=== PATIENT | female | born 2000 | race Two or more races ===

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

== ENCOUNTER → 2021-03-13 08:31 | Outpatient (BNVA) | payer OTHER, SELFPAY | PROVIDERS: Visit Provider Advanced Practice Midwife | DX: Z30.42 Encounter for surveillance of injectable contraceptive (principal) | CPT/HCPCS: 96372; 99211; J1050 ==

== ENCOUNTER → 2021-06-06 08:48 | Outpatient (BNVA) | payer OTHER, SELFPAY | PROVIDERS: Visit Provider Advanced Practice Midwife | DX: Z30.42 Encounter for surveillance of injectable contraceptive (principal) | CPT/HCPCS: 96372; 99211 ==

== ENCOUNTER 2021-07-03 07:50 | Outpatient (REF) | payer OTHER, SELFPAY ==
[2021-07-03 16:47] LABS: CT PCR NOT DETECTED (Not Detect.); NG PCR NOT DETECTED (Not Detect.)
== END 2021-07-03 07:51 | disposition home or self-care (01) ==
LOC: HO.LAB 07:50
PROVIDERS: Visit Provider Advanced Practice Midwife
DX: Z01.419 Encounter for gynecological examination (general) (routine) without abnormal findings (principal); Z79.899 Other long term (current) drug therapy
CPT/HCPCS: 87491; 87591

== ENCOUNTER → 2021-08-28 08:31 | Outpatient (BNVA) | payer OTHER, SELFPAY | PROVIDERS: Visit Provider Advanced Practice Midwife | DX: Z30.42 Encounter for surveillance of injectable contraceptive (principal) | CPT/HCPCS: 96372; 99211 ==

== ENCOUNTER → 2021-11-19 08:43 | Outpatient (BNVA) | payer OTHER, SELFPAY | PROVIDERS: Visit Provider Advanced Practice Midwife | DX: Z30.42 Encounter for surveillance of injectable contraceptive (principal) | CPT/HCPCS: 96372; 99211 ==

== ENCOUNTER → 2022-02-05 08:57 | Outpatient (BNVA) | payer OTHER, SELFPAY | PROVIDERS: Visit Provider Advanced Practice Midwife | DX: Z30.42 Encounter for surveillance of injectable contraceptive (principal) | CPT/HCPCS: 96372; 99211 ==

== ENCOUNTER → 2022-04-30 08:32 | Outpatient (BNVA) | payer OTHER, SELFPAY | PROVIDERS: Visit Provider Advanced Practice Midwife | DX: Z30.42 Encounter for surveillance of injectable contraceptive (principal) | CPT/HCPCS: 96372; 99211 ==

== ENCOUNTER 2022-07-09 08:33 | Outpatient (REF) | payer OTHER, SELFPAY ==
[2022-07-09 14:01] LABS: CT PCR NOT DETECTED (Not Detect.); NG PCR NOT DETECTED (Not Detect.)
== END 2022-07-09 08:34 | disposition home or self-care (01) ==
LOC: HO.LAB 08:33
PROVIDERS: Visit Provider Advanced Practice Midwife
DX: Z01.419 Encounter for gynecological examination (general) (routine) without abnormal findings (principal); Z20.2 Contact with and (suspected) exposure to infections with a predominantly sexual mode of transmission
CPT/HCPCS: 87491; 87591; 88142

== ENCOUNTER → 2022-07-23 08:42 | Outpatient (BNVA) | payer OTHER, SELFPAY | PROVIDERS: Visit Provider Advanced Practice Midwife | DX: Z30.42 Encounter for surveillance of injectable contraceptive (principal) | CPT/HCPCS: 96372; 99211 ==

== ENCOUNTER → 2022-10-22 08:35 | Outpatient (BNVA) | payer OTHER, SELFPAY | PROVIDERS: Visit Provider Advanced Practice Midwife | DX: Z30.42 Encounter for surveillance of injectable contraceptive (principal) | CPT/HCPCS: 96372; 99211 ==

== ENCOUNTER → 2023-01-14 08:40 | Outpatient (BNVA) | payer OTHER, SELFPAY | PROVIDERS: Visit Provider Advanced Practice Midwife | DX: Z30.42 Encounter for surveillance of injectable contraceptive (principal) | CPT/HCPCS: 96372; 99211 ==

== ENCOUNTER → 2023-04-09 09:11 | Outpatient (BNVA) | payer OTHER, SELFPAY | PROVIDERS: Visit Provider Advanced Practice Midwife | DX: Z30.42 Encounter for surveillance of injectable contraceptive (principal) | CPT/HCPCS: 96372; 99211 ==

== ENCOUNTER 2023-06-24 08:23 | Outpatient (AMB) | payer OTHER, SELFPAY ==
[2023-06-24 08:27] VITALS: BP 122/76; PULSE 92; O2SAT 99; BMI 28.5
--- NOTE | 2023-06-24 08:27 | A.OFFPC_ITS ---
Vital Signs 06/24/23 08:27 Height 5 ft 1 in Weight 151 lb BMI 28.5 BP 122/76 Blood Pressure Location Lt brachial Position Sitting Pulse 92 Pulse Source Pulse Oximeter Temp Source Skin Pulse Oximetry (%) 99 Oxygen Delivery Method Room Air Intake Visit Reasons: New patient- requesting physical Ostomy Care Nurse Required: No Allergies No Known Allergies Allergy (Verified 06/24/23 08:38) Medication List - Last Reconciled 06/24/23 by ANURADHA Love medroxyprogesterone (Depo-Provera) 150 mg IM [id number] Tobacco use date assessed: 06/24/23 Dental Screening Dental Screen Date: 06/24/23 Did you have a dental visit in the last 12 months?: Yes Did you have a dental problem in the last 6 months where you did not have access to dental care?: No Was dental information given to patient?: Patient has dentist HPI New patient- requesting physical HPI Details Patient is a 23-year-old female presents today for physical exam as a new patient. Previous PCP [facility] in [place]. Medical history significant for asthma, patient reports she needs refill for albuterol inhaler. Pap smear normal 06/2022 with [facility]. Dentist and eye exam up-to-date. Patient thanks she is up-to-date with her tetanus vaccine, she will provide office with her medical records from previous PCP. 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 Patient has a boyfriend and she lives with her [id number]. [facility] Medical History Asthma Surgical History No pertinent past surgical history Family History Mother No problems noted. Father No problems noted. Social History Housing: Apartment Alcohol intake: never Patient Tobacco Use Status: Never used Tobacco service: No Current occupational status: employed Cognitive needs: No Hearing needs: No Vision needs: No Female Reproductive History Menstrual Age of Menarche: 11 Questionnaire PHQ-9 Over the last 2 weeks, how often have you been bothered by any of the following problems? 1. Little interest or pleasure in doing things: not at all 2. Feeling down, depressed, or hopeless: not at all 3. Trouble falling or staying asleep, or sleeping too much: not at all 4. Feeling tired or having little energy: not at all 5. Poor appetite or overeating: not at all 6. Feeling bad about yourself - or that you are a failure or have let yourself or your family down: not at all 7. Trouble concentrating on things, such as reading the newspaper or watching television: not at all 8. Moving or speaking so slowly that other people could have noticed. Or the opposite - being so fidgety or restless that you have been moving around a lot more than usual: not at all 9. Thoughts that you would be better off or of hurting yourself in some way: not at all Total score: 0 Depression Screening Interpretation: Negative 95068 - PHQ-9 Billing: Yes Source: Developed by Drs. Maxime Hankins, Leta Ruiz, Trey James and colleagues, with an educational tera from [employer]. Thrive Questionnaire Date Thrive assessed: 06/24/23 I am a: Patient What is your living situation today?: I have a steady place to live Within the past 12 months, did the food you bought not last and you didn't have the money to get more?: Never true Within the past 12 months, did you worry whether your food would run out before you got money to buy more?: Never true Do you have trouble paying for medicines?: No Do you have trouble getting transportation to medical appointments?: No Do you have trouble paying your heating and electricity bill?: No Do you have trouble taking care of your child, family member or friend?: No Do you have trouble with day-to-day activities such as bathing, preparing meals, shopping, managing finances, etc.?: No Are you currently unemployed and looking for a job?: No Are you interested in more education?: No Currently or been in a relationship where the following occur: no concerns reported AUDIT C Alcohol Use Questionnaire (AUDIT-C) 1. How often do you have a drink containing alcohol?: Monthly or less 2. How many drinks containing alcohol do you have on a typical day when you are drinking?: 1 or 2 3. How often do you have six or more drinks on one occasion?: Never Total Score: 1 Score Reviewed/Action Taken: No MALLORIE-7 AMB Questionnaire MALLORIE-7 Date MALLORIE - 7 assessed: 06/24/23 Feeling nervous, anxious, or on edge: 0 = Not at all Not being able to stop or control worryin = Not at all Worrying too much about different things: 0 = Not at all Trouble relaxin = Not at all Being so restless that it is hard to sit still: 0 = Not at all Becoming easily annoyed or irritable: 0 = Not at all Feeling afraid as if something awful might happen: 0 = Not at all Total MALLORIE-7 score (0-4 normal; 5-9 mild; 10-14 moderate; 15-21 severe): 0 Source: Developed by Drs. Maxime Hankins, Leta Ruiz, Trey James and colleagues, with an educational tera from [employer]. MALLORIE-7 Assessment Billing MALLORIE-7 Assessment Tool: MALLORIE-7 Assessment 00656 Review of Systems Const Denies body aches, Denies chills, Denies fever(s) and Denies headache(s) Eyes Denies change in vision ENT Denies dizziness, Denies otalgia, Denies headache(s), Denies nasal discharge, Denies sinus pain and Denies sore throat Card Denies chest pain, Denies edema, Denies lightheadedness and Denies dyspnea Resp Denies cough, Denies dyspnea and Denies wheezing GI Denies constipation, Denies diarrhea, Denies nausea and Denies vomiting Denies dysuria Musc Denies myalgias Skin/Breast Denies rash Neuro Denies dizziness and Denies headache(s) Aller/Immun Denies wheezing Physical exam (Primary Care) Vital Signs: Last Vital Signs Pulse 92 06/24/23 08:27 BP 122/76 06/24/23 08:27 Pulse Ox 99 06/24/23 08:27 Oxygen Delivery Method Room Air 06/24/23 08:27 BMI result Body Mass Index 28.5 Tobacco/Smoking Status: Tobacco use Status Tobacco use date assessed 06/24/23 06/24/23 08:33 Patient Tobacco Use Status Never used Tobacco 06/24/23 08:33 PHQ-9: PHQ-9 Score PHQ-9: Total score 0 06/24/23 08:33 Depression Screening Interpretation: Negative Thrive Assessment: Date of Thrive Assessment Date Thrive assessed 06/24/23 06/24/23 08:33 Currently or been in a relationship where the following occur: no concerns reported Const General: cooperative and no acute distress Orientation/consciousness: patient oriented x3 HENMT Head: Yes normocephalic and Yes atraumatic Ears: TM's normal bilaterally Face and sinus: Yes sinuses nontender Mouth: oropharynx normal and moist mucous membranes Throat: Yes posterior oropharynx normal Eyes General: appearance normal, both eyes and all related structures Pupils: Equal, round and reactive pupils present EOM: EOMs intact bilaterally Neck Neck: Yes normal visual inspection, Yes full ROM and Yes no lymphadenopathy Thyroid: Thyroid normal Resp Effort & Inspection: normal respiratory effort and able to speak in complete sentences Auscultation: clear to auscultation bilaterally, no crackles, no rales, no rhonchi and no wheezes Cardio Rate: regular rate Rhythm: regular rhythm Heart sounds: S1 normal heart sound present, S2 normal heart sound present and no murmurs GI Palpation (GI): Soft to palpation, not firm, nontender, no guarding, not rigid and no hepatosplenomegaly Auscultation: normal bowel sounds General: No CVA tenderness Back/Spine/Pelvis Back: No CVA tenderness Skin General skin exam: no rashes or lesions noted Neuro General: patient oriented x3 Cranial nerves: Yes Equal, round and reactive pupils present Gait exam (Neuro): Normal gait present Extrem General: Yes full ROM and No edema Assessment and Plan Assessment & Plan (1) Adult general medical exam: Code(s): Z00.00 - Encounter for general adult medical examination without abnormal findings Plan: Repeat in 1 year, blood work ordered (2) Asthma: Code(s): J45.909 - Unspecified asthma, uncomplicated Plan: Stable Prescription provided for albuterol inhaler p.r.n. Signs and symptoms reviewed when to notify provider or go to the emergency department Orders: Orders Vitamin B12 and Folate Today J45.909 - Unspecified asthma, uncomplicated Comprehensive Met. Panel Today J45.909 - Unspecified asthma, uncomplicated TSH reflex Free T4 Today J45.909 - Unspecified asthma, uncomplicated Vitamin D 25-OH Total Today J45.909 - Unspecified asthma, uncomplicated Complete Blood Count Auto Diff Today Z00.00 - Encounter for general adult medical examination without abnormal findings Medications: New albuterol sulfate 90 mcg/actuation (Ventolin HFA) 2 puffs inhalation Q4-6H PRN 8.5 grams 0RF shortness of breath or wheezing J45.909 - Unspecified asthma, uncomplicated Coding Level of Care Code New Pt Prev Care 18-39yr(84000 Diagnoses Adult general medical exam Z00.00 Asthma J45.909 Additional Codes MALLORIE-7 Assessment Billing - MALLORIE-7 Assessment Tool: MALLORIE-7 Assessment 91988 ([id number])
== END 2023-06-24 08:48 | disposition home or self-care (01) ==
PROVIDERS: Visit Provider Nurse Practitioner Family
DX: Z00.00 Encounter for general adult medical examination without abnormal findings (principal); J45.909 Unspecified asthma, uncomplicated
CPT/HCPCS: 99385

== ENCOUNTER 2023-07-02 07:48 | Outpatient (AMB) | payer OTHER, SELFPAY ==
--- NOTE | 2023-07-02 07:48 | A.OFFVIS_ITS ---
Intake Vital Signs 07/02/23 07:49 Height 5 ft 1 in Weight 149 lb 14.629 oz BMI 28.3 BP 116/68 Intake Visit Reasons: control consult depo/ok linda villanueva Intake Note: The patient agreed to use of a medical imaging director during this encounter. Scribed for FAIZA Espinoza by Deedee Cao medical imaging director, on 07/02/2023 at 7:55 am EST. Event Lighting Specialist Required: No Information Interpreted: non-clinical & clinical Accompanied by: Self / Same As Patient Allergies No Known Allergies Allergy (Verified 07/02/23 07:49) Is last menstrual period known: No HPI HPI Comments History of Present Illness Details She is here for medical review for continuing Depo Provera use. She is on time with her injections. Reports no VB on Depo. She denies any contraindications to control such as: migraines with aura, history of DVT or pulmonary emboli, high blood pressure, liver disease, thrombolic disorders, Lupus, +OPAL, or smoking. She has no questions or concerns. [facility] Medical History Asthma Contraceptive surveillance Surgical History No pertinent past surgical history Family History Mother No problems noted. Father No problems noted. Social History Housing: Apartment Alcohol intake: never Patient Tobacco Use Status: Never used Tobacco service: No Current occupational status: employed Cognitive needs: No Hearing needs: No Vision needs: No Female Reproductive History Menstrual Age of Menarche: 11 control method: progesterone injection Physical Exam Vital Signs: Last Vital Signs BP 116/68 07/02/23 07:49 BMI result Body Mass Index 28.3 Const General: cooperative, healthy appearing, comfortable, no acute distress, well developed, alert and awake Office Procedures Depo Questionnaire If YES to any of the following questions, please consult a provider. Date of last gynecology exam: 07/02/23 Menstrual pattern since last injection has been: Not Applicable Irregular bleeding?: No Breast lumps or other breast changes?: No Changes in weight or appetite?: No Depression or changes in mood?: No Abnormal hair growth or loss?: No Skin problems (rash, acne, discoloration)?: No Pain at the injection site?: No Headaches?: No Nervousness?: No Abdominal pain or cramping?: No Dizziness or nausea?: No Fatigue or weakness?: No Decrease in sexual drive?: No Chest pain or shortness of breath?: No Swelling in arms or legs?: No Form completed by?: Kanchan Castro RN Office Meds Depo-Provera Performing Provider: Yary Felder CNM Administered by: Kanchan Castro on 07/02/23 08:42 Dose Route Admin Location Lot Number Expiration Date NDC Stamp Maker 150 mg IM left deltoid [id number] 08/14/25 10165-738-73 [facility] Assessment & Plan Assessment & Plan (1) Depot contraception: Code(s): Z30.42 - Encounter for surveillance of injectable contraceptive Plan: Discussed: Reviewed use, side effects and warnings. She was instructed to go to ER if she develops loss of vision, severe headache that does not resolve, chest pain, difficulty breathing, abdominal pain, or pain or tenderness in extremity or new breast lumps. Call the office with any concerns. All of her questions and concerns were addressed to the best of my ability and shared decision making. She is agreeable to plan of care. (2) Contraceptive surveillance: Code(s): Z30.40 - Encounter for surveillance of contraceptives, unspecified Orders: Orders AMB Medroxyprogesterone Injection Patient Supplied Today Z30.40 - Encounter for surveillance of contraceptives, unspecified Medications: Refilled medroxyprogesterone 150 mg IM Q12W 1 mL 2RF 12 weeks Coding Level of Care Code Est Pt Level 3 (65976) Diagnoses Depot contraception Z30.42 Contraceptive surveillance Z30.40
[2023-07-02 07:49] VITALS: BP 116/68; BMI 28.3
== END 2023-07-02 08:40 | disposition home or self-care (01) ==
LOC: HO.HWS 07:48
PROVIDERS: Visit Provider Advanced Practice Midwife
DX: Z30.42 Encounter for surveillance of injectable contraceptive (principal); Z30.40 Encounter for surveillance of contraceptives, unspecified
CPT/HCPCS: 99213

== ENCOUNTER → 2023-07-02 07:48 | Outpatient (BNVA) | payer OTHER, SELFPAY | PROVIDERS: Visit Provider Advanced Practice Midwife | DX: Z30.42 Encounter for surveillance of injectable contraceptive (principal); Z30.40 Encounter for surveillance of contraceptives, unspecified | CPT/HCPCS: 96372; 99212; J1050 ==

== ENCOUNTER 2023-07-16 07:49 | Outpatient (REF) | payer OTHER, SELFPAY ==
[2023-07-16 08:06] LABS: MANUAL DIFF FLAG NO
[2023-07-16 08:36] LABS: Basophils Absolute Auto 0.1 X10*3/uL (0.0-0.2); Basophils Percent Auto 0.6 % (0-2); Eosinophils Absolute Auto 0.3 X10*3/uL (0.0-0.4); Eosinophils Percent Auto 3.6 % (0-4); Hematocrit 47.3 % (37.0-47.0); Hemoglobin 16.2 g/dl (12.0-16.0); Imm Gran Abs Auto 0.02 X10*3/uL (0.00-0.03); Imm Gran Pct Auto 0.2 % (0.0-0.4); Lymphocytes Absolute Auto 2.7 X10*3/uL (1.2-4.9); Mean Corpuscular HGB Conc 34.2 g/dl (31.0-35.0); Mean Corpuscular Hemoglobin 28.6 pg (27.0-33.0); Mean Corpuscular Volume 83.6 fL (80.0-98.0); Mean Platelet Volume 10.2 fL (9.4-12.3); Monocytes Absolute Auto 0.7 X10*3/uL (0.1-1.2); Monocytes Percent Auto 8.4 % (2-11); Neutrophils Absolute Auto 4.7 x10*3/uL (2.0-8.3); Neutrophils Percent Auto 55.2 % (45-73); Platelet Count 334 X10*3/uL (160-400); Red Blood Count 5.66 X10*6/uL (4.20-5.50); Red Cell Distribution Width 12.8 % (11.0-16.0); White Blood Count 8.6 X10*3/uL (4.8-10.8)
[2023-07-16 10:00] LABS: Alanine Aminotransferase 10 U/L (0-31); Albumin Level 4.5 g/dL (3.5-5.0); Alkaline Phosphatase 77 U/L (39-117); Anion Gap 14 (12-20); Aspartate Amino Transferase 17 U/L (5-31); Bilirubin Total 0.4 mg/dL (0.0-1.0); Blood Urea Nitrogen 12 mg/dL (9-16); Calcium 9.8 mg/dL (8.4-10.2); Carbon Dioxide 20 mmol/L (22-29); Chloride 107 mmol/L (96-108); Estimated Glomerular Filt Rate > 60; Glucose Random 90 mg/dL (60-115); Potassium 4.3 mmol/L (3.3-5.1); Sodium 137 mmol/L (135-145); Total Protein 7.6 g/dL (6.5-8.0)
[2023-07-16 10:18] LABS: TSH reflex Free T4 1.64 uIU/mL (0.32-4.0); Vitamin D 25-OH Total 17.8 ng/mL (>30)
[2023-07-16 11:41] LABS: Folate 6.4 ng/mL (> or = 4.0); Vitamin B12 563 pg/mL (200-900)
== END 2023-07-16 07:50 | disposition home or self-care (01) ==
LOC: HO.LAB 07:49
PROVIDERS: PCP Nurse Practitioner Family; Visit Provider Nurse Practitioner Family
DX: Z00.00 Encounter for general adult medical examination without abnormal findings (principal); J45.909 Unspecified asthma, uncomplicated
CPT/HCPCS: 36415; 80053; 82306; 82607; 82746; 84443; 85025

== ENCOUNTER 2023-09-23 08:52 | Outpatient (AMB) | payer OTHER, SELFPAY ==
[2023-09-23 09:06] VITALS: BMI 29.2
--- NOTE | 2023-09-23 09:06 | AM.OFFVISNUR ---
Intake Vital Signs 09/23/23 09:06 Height 5 ft 1 in Weight 70.023 kg BMI 29.2 Intake Visit Reasons: DEPO Allergies No Known Allergies Allergy (Verified 07/02/23 07:49) Nursing Note Taisha is here today for her scheduled Depo-Provera inj. She has no complaints. AG scheduled for 12/01/23. Next Depo due in 12 wks. Office Procedures Depo Questionnaire If YES to any of the following questions, please consult a provider. Date of last injection: 07/02/23 Date of last gynecology exam: 07/09/22 Menstrual pattern since last injection has been: Not Applicable Irregular bleeding?: No Breast lumps or other breast changes?: No Changes in weight or appetite?: No Depression or changes in mood?: No Abnormal hair growth or loss?: No Skin problems (rash, acne, discoloration)?: No Pain at the injection site?: No Headaches?: No Nervousness?: No Abdominal pain or cramping?: No Dizziness or nausea?: No Fatigue or weakness?: No Decrease in sexual drive?: No Chest pain or shortness of breath?: No Swelling in arms or legs?: No Form completed by?: Selena Barnhart LPN Office Meds Depo-Provera 150 mg/mL intramuscular syringe Performing Provider: Yary Felder CNM Performing Location: [facility] Administered by: Lydia Barnhart LPN on 09/23/23 09:07 Dose Route Admin Location Dispensed Lot Number Expiration Date [facility] Relocation Commissioner 150 mg IM lt. deltoid 1 mL [id number] 09/14/25 95738-721-09 [facility] Coding Level of Care Code Established Pt Est Pt Level 1 (27370) Patient Type Established History Problem Focused Exam Problem Focused Medical Decision Making Straight Forward Time Spent (min) 15 Assessment & Plan Assessment & Plan Orders: Orders AMB Medroxyprogesterone Injection Patient Supplied Today Z30.42 - Encounter for surveillance of injectable contraceptive
== END 2023-09-23 09:03 | disposition home or self-care (01) ==
PROVIDERS: Visit Provider Advanced Practice Midwife
DX: Z30.42 Encounter for surveillance of injectable contraceptive (principal)

== ENCOUNTER → 2023-09-23 08:52 | Outpatient (BNVA) | payer OTHER, SELFPAY | PROVIDERS: Visit Provider Advanced Practice Midwife | DX: Z30.42 Encounter for surveillance of injectable contraceptive (principal) | CPT/HCPCS: 96372; 99211; J1050 ==

== ENCOUNTER 2023-12-01 08:50 | Outpatient (REF) | payer OTHER, SELFPAY ==
[2023-12-01 11:54] LABS: CT PCR NOT DETECTED (Not Detect.); NG PCR NOT DETECTED (Not Detect.)
== END 2023-12-01 08:51 | disposition home or self-care (01) ==
LOC: HO.LNP 08:50
PROVIDERS: Visit Provider Advanced Practice Midwife
DX: Z01.419 Encounter for gynecological examination (general) (routine) without abnormal findings (principal); Z20.2 Contact with and (suspected) exposure to infections with a predominantly sexual mode of transmission
CPT/HCPCS: 0353U; 99395

== ENCOUNTER 2023-12-01 08:50 | Outpatient (AMB) | payer OTHER, SELFPAY ==
--- NOTE | 2023-12-01 08:54 | MHC.OFFVIS ---
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 Doing well with no concerns. She tries to eat healthy and stays active with exercise. Doing well on Depo-Provera with no concerns and denies any contraindications to continued use. Currently has never been sexually active. She denies vaginal itching and irritation. STI screening offered; she accepts. Denies family history of breast, ovarian or colon cancer. Last pap smear 2021, negative. [facility] Medical History Contraceptive surveillance Asthma Surgical History No pertinent past surgical history Family History Mother No problems noted. Father No problems noted. Social History Housing: Apartment Alcohol intake: current Alcohol intake frequency: holidays/special occasions only Patient Tobacco Use Status: Never used Tobacco service: No Current occupational status: employed Cognitive needs: No Hearing needs: No Vision needs: No Female Reproductive History Menstrual Age of Menarche: 11 control method: progesterone injection Total pregnancies: 0 Date of last pap smear: 07/09/22 (neg) Review of Systems Const All systems reviewed & are unremarkable except as noted in HPI and below Reports as per HPI Eyes Reports no additional complaints ENT Reports no additional complaints Card Reports no additional complaints Resp Reports no additional complaints GI Reports as per HPI and Reports no additional complaints Reports as per HPI Musc Reports no additional complaints Skin/Breast Reports as per HPI Neuro Reports no additional complaints Psych Reports no additional complaints Endo Reports no additional complaints Juancho/Lymph Reports no additional complaints Aller/Immun Reports no additional complaints Physical Exam Vital Signs: Last Vital Signs BP 122/76 12/01/23 08:55 BMI result Body Mass Index 30.0 Const General: cooperative, healthy appearing, no acute distress, well developed and alert Orientation/consciousness: patient oriented x3 HEENT Head: Yes normal to inspection Eyes General: appearance normal, both eyes and all related structures Neck Neck: Yes normal visual inspection Thyroid: Thyroid normal Chest Chest palpation & inspection: normal inspection of the chest and other (no puckering, dimpling, peau de orange, retraction, discharge, masses) Breast/axilla inspection: normal inspection of the breasts Breast/axilla palpation: normal palpation of the breasts Resp Effort & Inspection: normal respiratory effort GI Inspection: Yes normal to inspection Palpation (GI): Soft to palpation Rectal Exam - Female: deferred Other: Small hymenal ring, tense with exam General: Yes bladder normal to palpation External Female Exam: normal external appearance and normal appearance of the urethra Speculum Exam - Vagina: normal appearance of the vagina, normal palpation and normal vaginal discharge Speculum Exam - Cervix: normal appearance of the cervix and normal palpation Bimanual exam- vagina & uterus: normal bimanual exam, normal palpation, uterine size normal, bladder normal to palpation, normal palpation and non-tender Bimanual Exam- Adnexa, other: no masses Skin General skin exam: no rashes or lesions noted Rashes: no rashes Neuro General: patient oriented x3 Cognition (Neuro): normal cognition Extrem General: Yes normal to inspection Psych Attitude: cooperative Thought process: Normal thought process present Assessment & Plan Assessment & Plan (1) Encounter for well woman exam with routine gynecological exam: Code(s): Z01.419 - Encounter for gynecological examination (general) (routine) without abnormal findings Plan Discussed: Current recommendations for pap smears per ASCCP guidelines. Breast awareness and periodic breast exams. Maintain a healthy lifestyle including a well balanced diet and routine exercise. Use condoms for STI and prevention. control hormone use warnings: go to ER if and loss of vision, blindness, severe headache, chest pain or difficulty breathing, severe abdominal pain, or any pain or swelling in an extremity. All of her questions and concerns were addressed to the best of my ability. RTO in one year for annual pattern changer and repairer examination. This note is constructed using voice recognition software. While every effort has been made to ensure accuracy, diamond powder mixer errors may have been included. Orders: Orders CT NG by PCR Today Z20.2 - Contact with and (suspected) exposure to infections with a predominantly sexual mode of transmission Medications: Refilled medroxyprogesterone 150 mg IM Q12W 1 mL 4RF 12 weeks Coding Level of Care Code Est Pt Prev Care 18-39y(41125) Diagnoses Encounter for well woman exam with routine gynecological exam Z01.419
[2023-12-01 08:55] VITALS: BP 122/76
== END 2023-12-01 11:07 | disposition home or self-care (01) ==
LOC: HO.HWS 08:50
PROVIDERS: Visit Provider Advanced Practice Midwife
DX: Z01.419 Encounter for gynecological examination (general) (routine) without abnormal findings (principal)
CPT/HCPCS: 99395

== ENCOUNTER 2023-12-16 09:05 | Outpatient (AMB) | payer OTHER, SELFPAY ==
[2023-12-16 09:20] VITALS: BMI 30.2
--- NOTE | 2023-12-16 09:20 | AM.OFFVISNUR ---
Intake Vital Signs 12/16/23 09:20 Height 5 ft 1 in Weight 72.575 kg BMI 30.2 Intake Visit Reasons: DEPO Allergies No Known Allergies Allergy (Verified 12/01/23 08:55) Office Procedures Depo Questionnaire If YES to any of the following questions, please consult a provider. Date of last injection: 09/23/23 Date of last gynecology exam: 12/01/23 Menstrual pattern since last injection has been: Not Applicable test in office results: Negative Irregular bleeding?: No Breast lumps or other breast changes?: No Changes in weight or appetite?: No Depression or changes in mood?: No Abnormal hair growth or loss?: No Skin problems (rash, acne, discoloration)?: No Pain at the injection site?: No Headaches?: No Nervousness?: No Abdominal pain or cramping?: No Dizziness or nausea?: No Fatigue or weakness?: No Decrease in sexual drive?: No Chest pain or shortness of breath?: No Swelling in arms or legs?: No Form completed by?: Selena Barnhart LPN Office Meds Depo-Provera 150 mg/mL intramuscular syringe Performing Provider: Yary Felder CNM Performing Location: [facility] Administered by: Lydia Barnhart LPN on 12/16/23 09:21 Dose Route Admin Location Dispensed Lot Number Expiration Date [facility] Pattern Ruler 150 mg IM left deltoid 1 mL [id number] 03/14/25 [address]-5 Amne[employer] Coding Level of Care Code Established Pt Est Pt Level 1 (00296) Patient Type Established History Problem Focused Exam Problem Focused Medical Decision Making Straight Forward Time Spent (min) 15 Assessment & Plan Assessment & Plan Orders: Orders AMB Medroxyprogesterone Injection Patient Supplied Today Z30.42 - Encounter for surveillance of injectable contraceptive
== END 2023-12-16 09:14 | disposition home or self-care (01) ==
LOC: HO.HWS 09:05
PROVIDERS: Visit Provider Advanced Practice Midwife
DX: Z30.42 Encounter for surveillance of injectable contraceptive (principal)

== ENCOUNTER → 2023-12-16 09:05 | Outpatient (BNVA) | payer OTHER, SELFPAY | PROVIDERS: Visit Provider Advanced Practice Midwife | DX: Z30.42 Encounter for surveillance of injectable contraceptive (principal) | CPT/HCPCS: 96372; 99211; J1050 ==

== ENCOUNTER 2024-01-13 08:01 | Outpatient (AMB) | payer OTHER, SELFPAY ==
[2024-01-13 08:03] VITALS: BP 120/70; BMI 30.8
--- NOTE | 2024-01-13 08:03 | A.OFFPC_ITS ---
Vital Signs 01/13/24 08:03 Height 5 ft 1 in Weight 163 lb BMI 30.8 BP 120/70 Blood Pressure Location Lt brachial Position Sitting Intake Visit Reasons: Transfer Of Care From(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: No Accompanied by: Self / Same As Patient Allergies No Known Allergies Allergy (Verified 01/13/24 08:41) Medication List - Last Reconciled 01/13/24 by Lashay Yin MD albuterol sulfate 90 mcg/actuation (Ventolin HFA) 2 puffs inhalation Q4-6H PRN cholecalciferol (vitamin D3) 50 mcg PO DAILY medroxyprogesterone 150 mg IM Q12W 12 weeks Tobacco use date assessed: 01/13/24 Dental Screening Dental Screen Date: 01/13/24 Did you have a dental visit in the last 12 months?: Yes Did you have a dental problem in the last 6 months where you did not have access to dental care?: No Was dental information given to patient?: Patient has dentist HPI HPI Comments History of Present Illness Details This is a 23-year-old female with asthma, obesity, elevated hemoglobin and low vitamin-D that comes today for follow-up on her conditions. Use rescue inhaler about once a month. She is obese with a BMI of 30.8 and was advised to do diet and exercise. Has elevated hemoglobin and denies any headaches. CBC will be repeated. On vitamin-D supplements for her low vitamin-D and vitamin-D levels will be repeated also. No chest pain or shortness of breath. [facility] Medical History (Updated 01/13/24 @ 10:47 by Lashay Yin MD) Contraceptive surveillance Asthma Surgical History No pertinent past surgical history Family History Mother No problems noted. Father No problems noted. Social History (Updated 01/13/24 @ 08:42 by Lashay Yin MD) Housing: Apartment Alcohol intake: current Alcohol intake frequency: holidays/special occasions only Alcohol type: hard liquor Patient Tobacco Use Status: Never used Tobacco e-Cigarette/Vaping Use: Never Used Second Hand Smoke Exposure: No service: No Current occupational status: employed Cognitive needs: No Hearing needs: No Vision needs: Yes Female Reproductive History Menstrual Age of Menarche: 11 Questionnaire PHQ-9 Over the last 2 weeks, how often have you been bothered by any of the following problems? 1. Little interest or pleasure in doing things: not at all 2. Feeling down, depressed, or hopeless: not at all 3. Trouble falling or staying asleep, or sleeping too much: not at all 4. Feeling tired or having little energy: not at all 5. Poor appetite or overeating: not at all 6. Feeling bad about yourself - or that you are a failure or have let yourself or your family down: not at all 7. Trouble concentrating on things, such as reading the newspaper or watching television: not at all 8. Moving or speaking so slowly that other people could have noticed. Or the opposite - being so fidgety or restless that you have been moving around a lot more than usual: not at all 9. Thoughts that you would be better off or of hurting yourself in some way: not at all Total score: 0 Depression Screening Interpretation: Negative Depression Screening Done: Yes 50281 - PHQ-9 Billing: Yes Source: Developed by Drs. Maxime Hankins, Leta Ruiz, Trey James and colleagues, with an educational tera from [employer]. Thrive Questionnaire Date Thrive assessed: 01/13/24 I am a: Patient What is your living situation today?: I have a steady place to live Within the past 12 months, did the food you bought not last and you didn't have the money to get more?: Never true Within the past 12 months, did you worry whether your food would run out before you got money to buy more?: Never true Do you have trouble paying for medicines?: No Do you have trouble getting transportation to medical appointments?: No Do you have trouble paying your heating and electricity bill?: No Do you have trouble taking care of your child, family member or friend?: No Do you have trouble with day-to-day activities such as bathing, preparing meals, shopping, managing finances, etc.?: No Are you currently unemployed and looking for a job?: No Are you interested in more education?: No Please select the resources that you would like help with: None Currently or been in a relationship where the following occur: no concerns reported THRIVE Score: 0 AUDIT C Alcohol Use Questionnaire (AUDIT-C) 1. How often do you have a drink containing alcohol?: Monthly or less 2. How many drinks containing alcohol do you have on a typical day when you are drinking?: 1 or 2 3. How often do you have six or more drinks on one occasion?: Never Total Score: 1 Score Reviewed/Action Taken: No MALLORIE-7 AMB Questionnaire MALLORIE-7 Date MALLORIE - 7 assessed: 01/13/24 Feeling nervous, anxious, or on edge: 0 = Not at all Not being able to stop or control worryin = Not at all Worrying too much about different things: 0 = Not at all Trouble relaxin = Not at all Being so restless that it is hard to sit still: 0 = Not at all Becoming easily annoyed or irritable: 0 = Not at all Feeling afraid as if something awful might happen: 0 = Not at all Total MALLORIE-7 score (0-4 normal; 5-9 mild; 10-14 moderate; 15-21 severe): 0 Source: Developed by Drs. Maxime Hankins, Leta Ruiz, Trey James and colleagues, with an educational tera from [employer]. MALLORIE-7 Assessment Billing MALLORIE-7 Assessment Tool: MALLORIE-7 Assessment 57429 Review of Systems Const All systems reviewed & are unremarkable except as noted in HPI and below Eyes Reports no additional complaints, Denies change in vision and Denies other visual disturbances Card Denies chest pain at rest, Denies chest pain with activity, Denies edema, Denies irregular heart rhythm, Denies claudication, Denies dyspnea, Denies dyspnea on exertion, Denies orthopnea, Denies paroxysmal nocturnal dyspnea and Denies slow heart rate Resp Denies cough, Denies dyspnea and Denies dyspnea on exertion GI Denies abdominal pain, Denies change in bowel habits, Denies excessive flatus, Denies nausea and Denies vomiting Denies urinary incontinence, Denies urinary hesitancy and Denies urinary urgency Musc Denies abnormal gait, Denies atrophy, Denies deformity and Denies limited range of motion Skin/Breast Denies bleeding lesions, Denies changing lesions and Denies rash Neuro Denies abnormal gait, Denies behavioral changes and Denies lack of coordination Psych Denies behavioral changes Physical exam (Primary Care) Vital Signs: Last Vital Signs BP 120/70 01/13/24 08:03 BMI result Body Mass Index 30.8 Tobacco/Smoking Status: Tobacco use Status Tobacco use date assessed 01/13/24 01/13/24 08:09 Patient Tobacco Use Status Never used Tobacco 01/13/24 08:42 e-Cigarette/Vaping Use Never Used 01/13/24 08:42 PHQ-9: PHQ-9 Score PHQ-9: Total score 0 01/13/24 08:46 Depression Screening Interpretation: Negative Thrive Assessment: Date of Thrive Assessment Date Thrive assessed 01/13/24 01/13/24 08:09 Currently or been in a relationship where the following occur: no concerns reported Neck Neck: Yes normal visual inspection and Yes supple Resp Effort & Inspection: normal respiratory effort Auscultation: clear to auscultation bilaterally Cardio Jugular venous distension: no JVD Rate: regular rate Rhythm: regular rhythm Heart sounds: S1 normal heart sound present and S2 normal heart sound present Extrem General: Yes full ROM Assessment and Plan Assessment & Plan (1) Elevated hemoglobin: Code(s): D58.2 - Other hemoglobinopathies Plan: Repeat H&H.. If hemoglobin still elevated referred to Hematology-Oncology. Patient is aware of that. (2) Low vitamin D level: Code(s): R79.89 - Other specified abnormal findings of blood chemistry Plan: Continue vitamin-D supplements. (3) Asthma: Code(s): J45.909 - Unspecified asthma, uncomplicated Qualifiers: Asthma severity: mild Asthma persistence: persistent Asthma complication type: uncomplicated Qualified Code(s): J45.30 - Mild persistent a sthma, uncomplicated Plan: Use rescue inhaler as needed. (4) Obesity, Class I, BMI 30-34.9: Code(s): E66.9 - Obesity, unspecified Plan: Start diet and exercise. Orders: Orders Vitamin D 25-OH Total Today E55.9 - Vitamin D deficiency, unspecified IRON PROFILE Today D64.9 - Anemia, unspecified Complete Blood Count Auto Diff Today D58.2 - Other hemoglobinopathies Coding Level of Care Code Est Pt Level 4 (39015) Diagnoses Elevated hemoglobin D58.2 Low vitamin D level R79.89 Mild persistent asthma without complication J45.30 Asthma severity: mild Asthma persistence: persistent Asthma complication type: uncomplicated Obesity, Class I, BMI 30-34.9 E66.9 Additional Codes MALLORIE-7 Assessment Billing - MALLORIE-7 Assessment Tool: MALLORIE-7 Assessment 04688 ([id number]) Time Spent (min) 21
== END 2024-01-13 08:53 | disposition home or self-care (01) ==
PROVIDERS: Visit Provider Internal Medicine
DX: D58.2 Other hemoglobinopathies (principal); E66.9 Obesity, unspecified; Z68.30 Body mass index [BMI] 30.0-30.9, adult; R79.89 Other specified abnormal findings of blood chemistry; J45.30 Mild persistent asthma, uncomplicated
CPT/HCPCS: 99214

== ENCOUNTER 2024-03-06 08:55 | Outpatient (AMB) | payer OTHER, SELFPAY ==
--- NOTE | 2024-03-06 09:09 | AM.OFFVISNUR ---
Intake Vital Signs 03/06/24 09:10 Height 5 ft 1 in Weight 75.807 kg BMI 31.6 Intake Visit Reasons: DEPO Allergies No Known Allergies Allergy (Verified 01/13/24 08:41) Nursing Note Taisha is here today for he scheduled Depo-Provera INJ. She denies any problems. Follow up in 12 wks for next inj. Office Procedures Depo Questionnaire If YES to any of the following questions, please consult a provider. Date of last injection: 12/16/23 Date of last gynecology exam: 12/01/23 Menstrual pattern since last injection has been: Not Applicable Irregular bleeding?: Not Applicable Breast lumps or other breast changes?: No Changes in weight or appetite?: No Depression or changes in mood?: No Abnormal hair growth or loss?: No Skin problems (rash, acne, discoloration)?: No Pain at the injection site?: No Headaches?: No Nervousness?: No Abdominal pain or cramping?: No Dizziness or nausea?: No Fatigue or weakness?: No Decrease in sexual drive?: No Chest pain or shortness of breath?: No Swelling in arms or legs?: No Form completed by?: Selena Barnhart LPN Office Meds Depo-Provera 150 mg/mL intramuscular syringe Performing Provider: Yary Felder CNM [place] [facility] [facility] Administered by: Lydia Barnhart LPN on 03/06/24 09:10 Dose Route Admin Location Dispensed Lot Number Expiration Date [facility] Train Braker 150 mg IM rt. deltoid 1 mL [id number] 11/14/25 [address]-9 [facility] Coding Level of Care Code Established Pt Est Pt Level 1 (42690) Patient Type Established History Problem Focused Exam Problem Focused Medical Decision Making Straight Forward Time Spent (min) 20 Assessment & Plan Assessment & Plan Orders: Orders AMB Medroxyprogesterone Injection Patient Supplied Today Z30.40 - Encounter for surveillance of contraceptives, unspecified Medications: New Depo-Provera (medroxyprogesterone) 150 mg IM ONCE 1 mL 0RF NS Z30.40 - Encounter for surveillance of contraceptives, unspecified
[2024-03-06 09:10] VITALS: BMI 31.6
== END 2024-03-06 09:06 | disposition home or self-care (01) ==
LOC: HO.HWS 08:55
PROVIDERS: Visit Provider Advanced Practice Midwife
DX: Z30.40 Encounter for surveillance of contraceptives, unspecified (principal)

== ENCOUNTER → 2024-03-06 08:55 | Outpatient (BNVA) | payer OTHER, SELFPAY | PROVIDERS: Visit Provider Advanced Practice Midwife | DX: Z30.40 Encounter for surveillance of contraceptives, unspecified (principal) | CPT/HCPCS: 96372; 99211; J1050 ==

== ENCOUNTER 2024-06-01 09:01 | Outpatient (AMB) | payer OTHER, SELFPAY ==
[2024-06-01 09:16] VITALS: BMI 33.0
--- NOTE | 2024-06-01 09:16 | AM.OFFVISNUR ---
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 No c/o, no menses. Pt tolerated injection well. She will schedule her next injection for 12 wks out. Pt verbalizes understanding and agrees with plan. No further questions. Office Procedures Depo Questionnaire If YES to any of the following questions, please consult a provider. Date of last injection: 03/06/24 Date of last gynecology exam: 12/01/23 Menstrual pattern since last injection has been: Not Applicable Irregular bleeding?: No Breast lumps or other breast changes?: No Changes in weight or appetite?: No Depression or changes in mood?: No Abnormal hair growth or loss?: No Skin problems (rash, acne, discoloration)?: No Pain at the injection site?: No Headaches?: No Nervousness?: No Abdominal pain or cramping?: No Dizziness or nausea?: No Fatigue or weakness?: No Decrease in sexual drive?: No Chest pain or shortness of breath?: No Swelling in arms or legs?: No Form completed by?: Kanchan Castro RN Office Meds Depo-Provera 150 mg/mL intramuscular syringe Performing Provider: Yary Felder CNM Performing Location[place] [facility] [place] [facility] Administered by: Kanchan Castro on 06/01/24 09:17 Dose Route Admin Location Dispensed Lot Number Expiration Date [facility] Senior Online Marketing Manager 150 mg IM left deltoid 1 mL [id number] 01/12/26 [address]-4 [facility] Assessment & Plan Assessment & Plan Orders: Orders AMB Medroxyprogesterone Injection Patient Supplied Today Z30.42 - Encounter for surveillance of injectable contraceptive Medications: New Depo-Provera (medroxyprogesterone) 150 mg IM ONCE 1 mL 0RF NS Z30.42 - Encounter for surveillance of injectable contraceptive
== END 2024-06-01 09:15 | disposition home or self-care (01) ==
LOC: HO.HWS 09:01
PROVIDERS: Visit Provider Advanced Practice Midwife
DX: Z30.42 Encounter for surveillance of injectable contraceptive (principal)

== ENCOUNTER → 2024-06-01 09:01 | Outpatient (BNVA) | payer OTHER, SELFPAY | PROVIDERS: Visit Provider Advanced Practice Midwife | DX: Z30.42 Encounter for surveillance of injectable contraceptive (principal) | CPT/HCPCS: 96372; 99211; J1050 ==

== ENCOUNTER 2024-06-16 06:38 | Outpatient (REF) | payer OTHER, SELFPAY ==
[2024-06-16 06:49] LABS: MANUAL DIFF FLAG NO
[2024-06-16 07:21] LABS: Basophils Percent Auto 0.4 % (0-2); Eosinophils Absolute Auto 0.1 X10*3/uL (0.0-0.4); Eosinophils Percent Auto 0.8 % (0-4); Hematocrit 46.6 % (37.0-47.0); Hemoglobin 16.2 g/dl (12.0-16.0); Imm Gran Abs Auto 0.06 X10*3/uL (0.00-0.03); Imm Gran Pct Auto 0.6 % (0.0-0.4); Lymphocytes Absolute Auto 3.3 X10*3/uL (1.2-4.9); Lymphocytes Percent Auto 33.3 % (20-40); Mean Corpuscular HGB Conc 34.8 g/dl (31.0-35.0); Mean Corpuscular Hemoglobin 29.1 pg (27.0-33.0); Mean Corpuscular Volume 83.8 fL (80.0-98.0); Mean Platelet Volume 9.8 fL (9.4-12.3); Monocytes Absolute Auto 0.6 X10*3/uL (0.1-1.2); Monocytes Percent Auto 5.6 % (2-11); Neutrophils Absolute Auto 5.9 x10*3/uL (2.0-8.3); Neutrophils Percent Auto 59.3 % (45-73); Platelet Count 330 X10*3/uL (160-400); Red Blood Count 5.56 X10*6/uL (4.20-5.50); Red Cell Distribution Width 12.6 % (11.0-16.0); White Blood Count 9.9 X10*3/uL (4.8-10.8)
[2024-06-16 07:50] LABS: Iron 75 mcg/dL (30-160); Percent Iron Saturation 25 % (15-50); Total Iron Binding Capacity 302 mcg/dL (228-428); Unsaturated Iron Binding 227 ug/dL
[2024-06-16 08:07] LABS: Vitamin D 25-OH Total 22.1 ng/mL (>30)
== END 2024-06-16 06:39 | disposition home or self-care (01) ==
LOC: HO.LAB 06:38
PROVIDERS: PCP Internal Medicine; Visit Provider Internal Medicine
DX: D58.2 Other hemoglobinopathies (principal); D64.9 Anemia, unspecified; E55.9 Vitamin D deficiency, unspecified
CPT/HCPCS: 36415; 82306; 83540; 85025

== ENCOUNTER 2024-06-29 09:37 | Outpatient (AMB) | payer OTHER, SELFPAY ==
[2024-06-29 09:47] VITALS: BP 118/76; BMI 32.7
--- NOTE | 2024-06-29 09:47 | A.OFFPC_ITS ---
Vital Signs 06/29/24 09:47 Height 5 ft 1 in Weight 173 lb BMI 32.7 BP 118/76 Blood Pressure Location Lt brachial Position Sitting Intake Visit Reasons: ANNUAL Intake Note: Patient here for an annual physical exam Kaiako Kohanga Reo Required: No Accompanied by: Self / Same As Patient Allergies No Known Allergies Allergy (Verified 06/29/24 09:59) Medication List - Last Reconciled 06/29/24 by Lashay Yin MD albuterol sulfate 90 mcg/actuation (Ventolin HFA) 2 puffs inhalation Q4-6H PRN cholecalciferol (vitamin D3) 50 mcg PO DAILY medroxyprogesterone 150 mg IM Q12W 12 weeks Tobacco use date assessed: 01/13/24 Dental Screening Dental Screen Date: 01/13/24 HPI HPI Comments History of Present Illness Details This is a 24-year-old female that comes for her physical exam. Pap smear done 2021. Denies any chest pain or shortness on breath. No fever or cough. No chest pain or shortness on breath. She is obese with a BMI of 32.7 and was advised to do diet and exercise to reach BMI goal less than 30. Has elevated hemoglobin and will see Hematology-Oncology next week. [facility] Medical History Contraceptive surveillance Asthma Surgical History No pertinent past surgical history Family History Mother No problems noted. Father No problems noted. Social History Housing: Apartment Alcohol intake: current Alcohol intake frequency: holidays/special occasions only Alcohol type: hard liquor Patient Tobacco Use Status: Never used Tobacco e-Cigarette/Vaping Use: Never Used Second Hand Smoke Exposure: No service: No Current occupational status: employed Current occupational exposures/hazards: No Cognitive needs: No Hearing needs: No Vision needs: Yes Female Reproductive History Menstrual Age of Menarche: 11 Questionnaire Thrive Questionnaire Date Thrive assessed: 01/13/24 MALLORIE-7 AMB Questionnaire MALLORIE-7 Date MALLORIE - 7 assessed: 01/13/24 Source: Developed by Drs. Maxime Hankins, Leta Ruiz, Trey James and colleagues, with an educational tera from [employer]. Review of Systems Const All systems reviewed & are unremarkable except as noted in HPI and below Card Denies chest pain at rest, Denies chest pain with activity, Denies edema, Denies irregular heart rhythm, Denies claudication, Denies dyspnea, Denies dyspnea on e xertion, Denies orthopnea, Denies paroxysmal nocturnal dyspnea and Denies slow heart rate Resp Denies cough, Denies dyspnea and Denies dyspnea on exertion GI Denies abdominal pain, Denies change in bowel habits, Denies excessive flatus, Denies nausea and Denies vomiting Denies urinary incontinence, Denies urinary hesitancy and Denies urinary urgency Physical exam (Primary Care) Vital Signs: Last Vital Signs BP 118/76 06/29/24 09:47 BMI result Body Mass Index 32.7 BMI Assessment/Plan discussion: High BMI High, discussed plan: lifestyle, weight reduction, dietary and physical activity Tobacco/Smoking Status: Tobacco use Status Tobacco use date assessed 01/13/24 06/29/24 09:51 Patient Tobacco Use Status Never used Tobacco 06/29/24 09:51 e-Cigarette/Vaping Use Never Used 06/29/24 09:51 Thrive Assessment: Date of Thrive Assessment Date Thrive assessed 01/13/24 06/29/24 09:51 [facility] Head: Yes normal to inspection, Yes normocephalic and Yes atraumatic Ears: external ears normal Eyes General: appearance normal, both eyes and all related structures Eyelids: Yes eyelids normal Conjunctivae: conjunctivae normal Neck Neck: Yes normal visual inspection and Yes supple Resp Effort & Inspection: normal respiratory effort Auscultation: clear to auscultation bilaterally Cardio Jugular venous distension: no JVD Rate: regular rate Rhythm: regular rhythm Heart sounds: S1 normal heart sound present and S2 normal heart sound present GI Inspection: Yes normal to inspection Palpation (GI): Soft to palpation and nontender Auscultation: normal bowel sounds Skin General skin exam: no rashes or lesions noted Neuro General: no focal motor deficits Extrem General: Yes full ROM Psych Appearance: grossly normal Assessment and Plan Assessment & Plan (1) Adult general medical exam: Code(s): Z00.00 - Encounter for general adult medical examination without abnormal findings Plan: Repeat in a year. (2) Elevated hemoglobin: Code(s): D58.2 - Other hemoglobinopathies Plan: Follow-up with Hematology-Oncology. Coding Level of Care Code Est Pt Prev Care 18-39y(77513) Diagnoses Adult general medical exam Z00.00 Elevated hemoglobin D58.2 Time Spent (min) 30
== END 2024-06-29 10:07 | disposition home or self-care (01) ==
PROVIDERS: Visit Provider Internal Medicine
DX: Z00.00 Encounter for general adult medical examination without abnormal findings (principal); D58.2 Other hemoglobinopathies
CPT/HCPCS: 99395

== ENCOUNTER → 2024-07-06 09:39 | Outpatient (BNV) | payer OTHER, SELFPAY | PROVIDERS: PCP Internal Medicine; Referring Provider Internal Medicine; Visit Provider Internal Medicine | DX: D58.2 Other hemoglobinopathies (principal) | CPT/HCPCS: 99203 ==

== ENCOUNTER 2024-08-17 09:00 | Outpatient (AMB) | payer OTHER, SELFPAY ==
[2024-08-17 09:20] VITALS: BMI 32.0
--- NOTE | 2024-08-17 09:20 | AM.OFFVISNUR ---
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 No c/o. Pt tolerated injection well. She will schedule her next injection in 12 weeks. Pt verbalizes understanding and agrees with plan. No further questions. Office Procedures Depo Questionnaire If YES to any of the following questions, please consult a provider. Date of last injection: 06/01/24 Date of last gynecology exam: 12/01/23 Menstrual pattern since last injection has been: Not Applicable Irregular bleeding?: No Changes in weight or appetite?: No Depression or changes in mood?: No Abnormal hair growth or loss?: No Skin problems (rash, acne, discoloration)?: No Pain at the injection site?: No Headaches?: No Nervousness?: No Abdominal pain or cramping?: No Dizziness or nausea?: No Fatigue or weakness?: No Decrease in sexual drive?: No Chest pain or shortness of breath?: No Swelling in arms or legs?: No Form completed by?: Kanchan Castro RN Office Meds Depo-Provera 150 mg/mL intramuscular syringe Performing Provider: Yary Felder CNM Performing Location: [facility] [place] [facility] Administered by: Kanchan Castro on 08/17/24 09:25 Dose Route Admin Location Dispensed Lot Number Expiration Date [facility] Control Technician 150 mg IM right deltoid 1 mL [id number] 01/12/26 [address]-2 [facility] Assessment & Plan Assessment & Plan (1) Depot contraception: Code(s): Z30.42 - Encounter for surveillance of injectable contraceptive Category: Medical Plan Pt will schedule next injection in 12 weeks. Orders: Orders AMB Medroxyprogesterone Injection Patient Supplied Today Z30.42 - Encounter for surveillance of injectable contraceptive Medications: New Depo-Provera (medroxyprogesterone) 150 mg IM ONCE 1 mL 0RF NS Z30.42 - Encounter for surveillance of injectable contraceptive
== END 2024-08-17 09:18 | disposition home or self-care (01) ==
LOC: HO.HWS 09:00
PROVIDERS: PCP Internal Medicine; Visit Provider Advanced Practice Midwife
DX: Z30.42 Encounter for surveillance of injectable contraceptive (principal)

== ENCOUNTER → 2024-08-17 09:00 | Outpatient (BNVA) | payer OTHER, SELFPAY | PROVIDERS: PCP Internal Medicine; Visit Provider Advanced Practice Midwife | DX: Z30.42 Encounter for surveillance of injectable contraceptive (principal) | CPT/HCPCS: 96372; 99211; J1050 ==

== ENCOUNTER 2024-11-10 08:55 | Outpatient (AMB) | payer OTHER, SELFPAY ==
[2024-11-10 09:14] VITALS: BMI 33.2
--- NOTE | 2024-11-10 09:14 | AM.OFFVISNUR ---
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 No c/o, no new meds and no new medical problems. Pt tolerated injection well. She will schedule her next injection in 12 weeks. Pt verbalizes understanding and agrees with plan. No further questions. Office Procedures Depo Questionnaire If YES to any of the following questions, please consult a provider. Date of last injection: 08/17/24 Date of last gynecology exam: 12/01/23 Menstrual pattern since last injection has been: Not Applicable Irregular bleeding?: No Breast lumps or other breast changes?: No Changes in weight or appetite?: No Depression or changes in mood?: No Abnormal hair growth or loss?: No Skin problems (rash, acne, discoloration)?: No Pain at the injection site?: No Headaches?: No Nervousness?: No Abdominal pain or cramping?: No Dizziness or nausea?: No Fatigue or weakness?: No Decrease in sexual drive?: No Chest pain or shortness of breath?: No Swelling in arms or legs?: No Form completed by?: Kanchan Castro pearl technician Meds Depo-Provera 150 mg/mL intramuscular syringe Performing Provider: Yary Felder CNM Performing Location: [facility] [place] [facility] Administered by: Kanchan Castro on 11/10/24 09:18 Dose Route Admin Location Dispensed Lot Number Expiration Date [employer] Sales Account Executive 150 mg IM left deltoid 1 mL [id number] 11/14/26 35127-291-08 [facility] Assessment & Plan Assessment & Plan (1) Depot contraception: Code(s): Z30.42 - Encounter for surveillance of injectable contraceptive Category: Medical Plan: Pt will schedule her next Depo injection in 12 weeks. Orders: Orders AMB Medroxyprogesterone Injection Patient Supplied Today Z30.42 - Encounter for surveillance of injectable contraceptive Medications: New Depo-Provera (medroxyprogesterone) 150 mg IM ONCE 1 mL 0RF NS Z30.42 - Encounter for surveillance of injectable contraceptive
== END 2024-11-10 09:11 | disposition home or self-care (01) ==
LOC: HO.HWS 08:55
PROVIDERS: PCP Internal Medicine; Visit Provider Advanced Practice Midwife
DX: Z30.42 Encounter for surveillance of injectable contraceptive (principal)

== ENCOUNTER → 2024-11-10 08:55 | Outpatient (BNVA) | payer OTHER, SELFPAY | PROVIDERS: PCP Internal Medicine; Visit Provider Advanced Practice Midwife | DX: Z30.42 Encounter for surveillance of injectable contraceptive (principal) | CPT/HCPCS: 96372; 99211; J1050 ==

== ENCOUNTER 2024-12-07 08:39 | Outpatient (AMB) | payer OTHER, SELFPAY ==
--- NOTE | 2024-12-07 08:42 | A.OFFVIS_ITS ---
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 Current a user and desires to continue. She denies any contraindications to control such as: migraines with aura, history of DVT or pulmonary emboli, high blood pressure, liver disease, thrombolic disorders, Lupus, +OPAL, breast cancer, or smoking. Currently is never sexually active. She denies vaginal itching and irritation. STI screening offered; she declines. She tries to eat healthy and stays active with exercise-walking. Denies family history of breast, ovarian or colon cancer. Last pap smear 2021, negative. [facility] Medical History Contraceptive surveillance Asthma Surgical History No pertinent past surgical history Family History Mother No problems noted. Father No problems noted. Social History Household Members: Family Housing: Apartment Alcohol intake: current Alcohol intake frequency: holidays/special occasions only Alcohol type: hard liquor Patient Tobacco Use Status: Never used Tobacco e-Cigarette/Vaping Use: Never Used Second Hand Smoke Exposure: No Current occupational status: employed Current occupational exposures/hazards: No Gender identity: Female Cognitive needs: No Hearing needs: No Vision needs: Yes Female Reproductive History Menstrual Age of Menarche: 11 control method: progesterone injection (Depo 11/10/24) Total pregnancies: 0 Date of last pap smear: 07/09/22 (neg) Review of Systems Const All systems reviewed & are unremarkable except as noted in HPI and below Reports as per HPI Eyes Reports no additional complaints ENT Reports no additional complaints Card Reports no additional complaints Resp Reports no additional complaints GI Reports as per HPI and Reports no additional complaints Reports as per HPI Musc Reports no additional complaints Skin/Breast Reports as per HPI Neuro Reports no additional complaints Psych Reports no additional complaints Endo Reports no additional complaints Juancho/Lymph Reports no additional complaints Aller/Immun Reports no additional complaints Physical Exam Vital Signs: Last Vital Signs BP 114/70 12/07/24 08:43 BMI result Body Mass Index 33.1 Const General: cooperative, healthy appearing, no acute distress, well developed and alert Orientation/consciousness: patient oriented x3 HEENT Head: Yes normal to inspection Eyes General: appearance normal, both eyes and all related structures Neck Neck: Yes normal visual inspection Thyroid: Thyroid normal Chest Chest palpation & inspection: normal inspection of the chest and other (no puckering, dimpling, peau de orange, retraction, discharge, masses) Breast/axilla inspection: normal inspection of the breasts Breast/axilla palpation: normal palpation of the breasts Resp Effort & Inspection: normal respiratory effort GI Inspection: Yes normal to inspection Palpation (GI): Soft to palpation Rectal Exam - Female: deferred Other: Tense with the exam General: Yes bladder normal to palpation External Female Exam: normal external appearance and normal appearance of the urethra Speculum Exam - Vagina: normal appearance of the vagina, normal palpation and normal vaginal discharge Speculum Exam - Cervix: normal appearance of the cervix, normal palpation and Other cervical findings present (Bled with Pap) Bimanual exam- vagina & uterus: normal bimanual exam, normal palpation, uterine size normal, bladder normal to palpation, normal palpation and non-tender Bimanual Exam- Adnexa, other: no masses Skin General skin exam: no rashes or lesions noted Rashes: no rashes Neuro General: patient oriented x3 Cognition (Neuro): normal cognition Extrem General: Yes normal to inspection Psych Attitude: cooperative Thought process: Normal thought process present Assessment & Plan Assessment & Plan (1) Encounter for well woman exam with routine gynecological exam: Code(s): Z01.419 - Encounter for gynecological examination (general) (routine) without abnormal findings Category: Medical Plan Discussed: Current recommendations for pap smears per ASCCP guidelines. Pap obtained. Breast awareness and periodic breast exams. Maintain a healthy lifestyle including a well balanced diet and routine exercise. Use condoms for STI if becomes sexually active. control hormone use warnings: go to ER if and loss of vision, blindness, severe headache, chest pain or difficulty breathing, severe abdominal pain, or any pain or swelling in an extremity. Depo long-term use with reduction of bone density, methods to help prevent to include calcium and vitamin-D in her diet and weight-bearing exercise. Handout on calcium and weight-bearing exercises provided. Reviewed information on tumor generating hormonal cancers and literature currently available. Patient prefers to continue with Depo-Provera for now. Patient verbalizes understanding and agrees to the plan of care. She was given opportunity to ask questions and all questions were answered to the best of my ability. RTO in one year for annual slitter and cutter operator examination. This note is constructed using voice recognition software. While every effort has been made to ensure accuracy, paper tester errors may have been included. Medications: Refilled medroxyprogesterone 150 mg IM Q12W 12 weeks 1 mL 4RF Coding Level of Care Code Est Pt Prev Care 18-39y(15162) Diagnoses Encounter for well woman exam with routine gynecological exam Z01.419
[2024-12-07 08:43] VITALS: BP 114/70; BMI 33.1
== END 2024-12-07 09:40 | disposition home or self-care (01) ==
LOC: HO.HWS 08:39
PROVIDERS: PCP Internal Medicine; Visit Provider Advanced Practice Midwife
DX: Z01.419 Encounter for gynecological examination (general) (routine) without abnormal findings (principal)
CPT/HCPCS: 99395; 99459

== ENCOUNTER 2024-12-07 08:39 | Outpatient (REF) | payer OTHER, SELFPAY | END 2024-12-07 08:40 | disposition home or self-care (01) | LOC: HO.LNP 08:39 | PROVIDERS: PCP Internal Medicine; Visit Provider Advanced Practice Midwife | DX: Z01.419 Encounter for gynecological examination (general) (routine) without abnormal findings (principal); Z79.3 Long term (current) use of hormonal contraceptives | CPT/HCPCS: 88175; 99395; 99459 ==

== ENCOUNTER 2025-02-01 09:26 | Outpatient (AMB) | payer OTHER, SELFPAY ==
--- NOTE | 2025-02-01 10:19 | AM.OFFVISNUR ---
Intake Visit Reasons: DEPO Allergies No Known Allergies Allergy (Verified 12/07/24 08:43) Office Procedures Depo Questionnaire If YES to any of the following questions, please consult a provider. Date of last injection: 11/10/24 Pain at the injection site?: No Any other problems or concerns?: patient states no problems or concerns in 5 years of receiving this med Form completed by?: Antonia Reynoso RN Office Meds Depo-Provera 150 mg/mL intramuscular syringe Performing Provider: Yary Felder CNM Performing Location: [facility] [place] [facility] Services[facility] Administered by: Antonia Reynoso RN on 02/01/25 10:27 Dose Route Admin Location Dispensed Lot Number Expiration Date [facility] Medical/Surgery Registered Nurse 150 mg IM left arm 1.0 mL [id number] 01/13/26 79404-842-25 MYLAN Comments: Patient verified no allergies and has been receiving this medication for 5 years without ever having side effects. Patient tolerated this injection well. Assessment & Plan Assessment & Plan Orders: Orders AMB Medroxyprogesterone Injection Patient Supplied Today Z30.42 - Encounter for surveillance of injectable contraceptive Medications: New Depo-Provera (medroxyprogesterone) 150 mg IM ONCE 1 mL 0RF NS Z30.42 - Encounter for surveillance of injectable contraceptive Coding
== END 2025-02-01 10:09 | disposition home or self-care (01) ==
LOC: HO.HWS 09:26
PROVIDERS: PCP Internal Medicine; Visit Provider Advanced Practice Midwife
DX: Z30.42 Encounter for surveillance of injectable contraceptive (principal)

== ENCOUNTER → 2025-02-01 09:26 | Outpatient (BNVA) | payer OTHER, SELFPAY | PROVIDERS: PCP Internal Medicine; Visit Provider Advanced Practice Midwife | DX: Z30.42 Encounter for surveillance of injectable contraceptive (principal) | CPT/HCPCS: 96372; J1050 ==

== ENCOUNTER → 2025-04-05 09:01 | Outpatient (BNVA) | payer OTHER, SELFPAY | PROVIDERS: PCP Internal Medicine; Visit Provider Advanced Practice Midwife ==

== ENCOUNTER 2025-04-27 08:52 | Outpatient (AMB) | payer OTHER, SELFPAY ==
[2025-04-27 09:09] VITALS: BMI 34.0
--- NOTE | 2025-04-27 09:09 | AM.OFFVISNUR ---
Vital Signs 04/27/25 09:09 Height 5 ft 1 in Weight 180 lb BMI 34.0 Intake Visit Reasons: DEPO Allergies No Known Allergies Allergy (Verified 12/07/24 08:43) Medication List - Last Reconciled 04/27/25 by Danielle Stiles LPN albuterol sulfate 90 mcg/actuation (Ventolin HFA) 2 puffs inhalation Q4-6H PRN cholecalciferol (vitamin D3) 50 mcg PO DAILY medroxyprogesterone 150 mg IM Q12W Nursing Note Patient here for Depo Provera injection within the 12 weeks. Recieved injection to right deltoid without complaint. Will make apt for next depo provera injection in 12 weeks. Office Procedures Depo Questionnaire If YES to any of the following questions, please consult a provider. Date of last injection: 02/01/25 Date of last gynecology exam: 12/07/24 Menstrual pattern since last injection has been: Not Applicable Irregular bleeding?: No Breast lumps or other breast changes?: No Changes in weight or appetite?: No Depression or changes in mood?: No Abnormal hair growth or loss?: No Skin problems (rash, acne, discoloration)?: No Pain at the injection site?: No Headaches?: No Nervousness?: No Abdominal pain or cramping?: No Dizziness or nausea?: No Fatigue or weakness?: No Decrease in sexual drive?: No Chest pain or shortness of breath?: No Swelling in arms or legs?: No Any other problems or concerns?: none Form completed by?: Danielle Stiles LPN Office Meds Depo-Provera 150 mg/mL intramuscular syringe Performing Provider: Yary Felder CNM Performing Location: [facility] [place] [facility] Administered by: Danielle Stiles LPN on 04/27/25 09:16 Dose Route Admin Location Dispensed Lot Number Expiration Date [facility] Employment Law Attorney 150 mg IM right deltoid 1 mL [id number] 04/13/26 80276-744-49 MYLAN Assessment & Plan Assessment & Plan Orders: Orders AMB Medroxyprogesterone Injection Patient Supplied Today Z30.40 - Encounter for surveillance of contraceptives, unspecified Medications: New Depo-Provera (medroxyprogesterone) 150 mg IM ONCE 1 mL 0RF Z30.40 - Encounter for surveillance of contraceptives, unspecified Coding Level of Care Code Established Pt Est Pt Level 1 (68626) Patient Type Established History Problem Focused Exam Problem Focused Medical Decision Making Straight Forward Time Spent (min) 20
== END 2025-04-27 10:17 | disposition home or self-care (01) ==
LOC: HO.HWS 08:52
PROVIDERS: PCP Internal Medicine; Visit Provider Advanced Practice Midwife
DX: Z30.40 Encounter for surveillance of contraceptives, unspecified (principal)

== ENCOUNTER → 2025-04-27 08:52 | Outpatient (BNVA) | payer OTHER, SELFPAY | PROVIDERS: PCP Internal Medicine; Visit Provider Advanced Practice Midwife | DX: Z30.013 Encounter for initial prescription of injectable contraceptive (principal) | CPT/HCPCS: 96372; 99211; J1050 ==

== ENCOUNTER 2025-07-05 08:45 | Outpatient (AMB) | payer OTHER, SELFPAY ==
--- NOTE | 2025-07-05 08:51 | A.OFFPC_ITS ---
Vital Signs 07/05/25 08:52 Height 5 ft 1 in Weight 181 lb 2 oz BMI 34.2 BP 130/70 Blood Pressure Location Lt brachial Position Sitting Pulse 95 Pulse Source Pulse Oximeter Temp 97.1 F Temp Source Temporal Artery Scan Pulse Oximetry (%) 98 Oxygen Delivery Method Room Air Intake Visit Reasons: annual Intake Note: Patient is here today for a physical. Social Work Supervisor Required: No Account Developer: Not Required per policy Accompanied by: Self / Same As Patient Allergies No Known Allergies Allergy (Verified 07/05/25 09:01) Medication List - Last Reconciled 07/05/25 by Lashay Yin MD albuterol sulfate 90 mcg/actuation (Ventolin HFA) 2 puffs inhalation Q4-6H PRN cholecalciferol (vitamin D3) 50 mcg PO DAILY medroxyprogesterone 150 mg IM Q12W Tobacco use date assessed: 07/05/25 Dental Screening Dental Screen Date: 07/05/25 Did you have a dental visit in the last 12 months?: Yes Did you have a dental problem in the last 6 months where you did not have access to dental care?: No Was dental information given to patient?: Patient has dentist HPI HPI Comments History of Present Illness Details The patient is a 25-year-old female presenting for a physical examination and preventative care. She reports a history of elevated hemoglobin, for which she consulted a curriculum advisory teacher. The curriculum advisory teacher advised regular blood donations to manage the condition, which the patient has been following. The patient experiences mild anxiety but denies any depressive symptoms. She does not smoke and consumes alcohol only on special occasions. She is unsure about her Tdap vaccination status and is considering getting va ccinated as a preventative measure. The patient has no known allergies and is currently using a rescue inhaler, vitamin D supplements, and Depo-Provera for contraception. [facility] Medical History Contraceptive surveillance Asthma Surgical History No pertinent past surgical history Family History Mother No problems noted. Father No problems noted. Social History Household Members: Family Housing: Apartment Alcohol intake: current Alcohol intake frequency: holidays/special occasions only Alcohol type: hard liquor Patient Tobacco Use Status: Never used Tobacco e-Cigarette/Vaping Use: Never Used Second Hand Smoke Exposure: No service: No Current occupational status: employed Current occupational exposures/hazards: No Gender identity: Female Cognitive needs: No Hearing needs: No Vision needs: Yes (Glasses) Female Reproductive History Menstrual Age of Menarche: 11 Questionnaire PHQ-9 Over the last 2 weeks, how often have you been bothered by any of the following problems? 1. Little interest or pleasure in doing things: not at all 2. Feeling down, depressed, or hopeless: not at all 3. Trouble falling or staying asleep, or sleeping too much: not at all 4. Feeling tired or having little energy: several days 5. Poor appetite or overeating: not at all 6. Feeling bad about yourself - or that you are a failure or have let yourself o r your family down: not at all 7. Trouble concentrating on things, such as reading the newspaper or watching television: not at all 8. Moving or speaking so slowly that other people could have noticed. Or the opposite - being so fidgety or restless that you have been moving around a lot more than usual: not at all 9. Thoughts that you would be better off or of hurting yourself in some way: not at all Total score: 1 Depression Screening Interpretation: Negative Depression Screening Done: Yes 31817 - PHQ-9 Billing: Yes Source: Developed by Drs. Maxime Hankins, Leta Ruiz, Trey chaves nd colleagues, with an educational tera from [email or web address]. Thrive Questionnaire Date Thrive assessed: 06/28/25 I am a: Patient What is your living situation today?: I have a steady place to live Within the past 12 months, did the food you bought not last and you didn't have the money to get more?: Never true Within the past 12 months, did you worry whether your food would run out before you got money to buy more?: Never true Do you have trouble paying for medicines?: No Do you have trouble getting transportation to medical appointments?: No Do you have trouble paying your heating and electricity bill?: No Do you have trouble taking care of your child, family member or friend?: No Do you have trouble with day-to-day activities such as bathing, preparing meals, shopping, managing finances, etc.?: No Are you currently unemployed and looking for a job?: No Are you interested in more education?: Yes Please select the resources that you would like help with: Education Currently or been in a relationship where the following occur: No concerns reported THRIVE Score: 0 AUDIT C Alcohol Use Questionnaire (AUDIT-C) 1. How often do you have a drink containing alcohol?: Monthly or less 2. How many drinks containing alcohol do you have on a typical day when you are drinking?: 1 or 2 3. How often do you have six or more drinks on one occasion?: Never Total Score: 1 Score Reviewed/Action Taken: No MALLORIE-7 AMB Questionnaire MALLORIE-7 Date MALLORIE - 7 assessed: 07/05/25 Feeling nervous, anxious, or on edge: 1 = Several days Not being able to stop or control worryin = Not at all Worrying too much about different things: 1 = Several days Trouble relaxin = Not at all Being so restless that it is hard to sit still: 0 = Not at all Becoming easily annoyed or irritable: 1 = Several days Feeling afraid as if something awful might happen: 1 = Several days Total MALLORIE-7 score (0-4 normal; 5-9 mild; 10-14 moderate; 15-21 severe): 4 Source: Developed by Drs. Maxime Hankins, Leta Ruiz, Trey James and colleagues, with an educational tera from [email or web address]. MALLORIE-7 Assessment Billing MALLORIE-7 Assessment Tool: MALLORIE-7 Assessment 15131 Review of Systems Const All systems reviewed & are unremarkable except as noted in HPI and below Card Denies chest pain at rest, Denies chest pain with activity, Denies edema, Denies irregular heart rhythm, Denies claudication, Denies dyspnea, Denies dyspnea on exertion, Denies orthopnea, Denies paroxysmal nocturnal dyspnea and Denies slow heart rate Resp Denies cough, Denies dyspnea and Denies dyspnea on exertion GI Denies abdominal pain, Denies change in bowel habits, Denies excessive flatus, Denies nausea and Denies vomiting Denies urinary incontinence, Denies urinary hesitancy and Denies urinary urgency Musc Denies abnormal gait, Denies atrophy, Denies deformity and Denies limited range of motion Skin/Breast Denies bleeding lesions, Denies changing lesions and Denies rash Neuro Denies abnormal gait, Denies behavioral changes, Denies confusion and Denies lack of coordination Psych Denies behavioral changes and Denies confusion Physical exam (Primary Care) Vital Signs: Last Vital Signs Temp 97.1 F 07/05/25 08:52 Pulse 95 07/05/25 08:52 BP 130/70 07/05/25 08:52 Pulse Ox 98 07/05/25 08:52 Oxygen Delivery Method Room Air 07/05/25 08:52 BMI result Body Mass Index 34.2 Tobacco/Smoking Status: Tobacco use Status Tobacco use date assessed 07/05/25 07/05/25 08:56 Patient Tobacco Use Status Never used Tobacco 07/05/25 08:56 e-Cigarette/Vaping Use Never Used 07/05/25 08:56 PHQ-9: PHQ-9 Score PHQ-9: Total score 1 07/05/25 08:56 Depression Screening Interpretation: Negative Thrive Assessment: Date of Thrive Assessment Date Thrive assessed 06/28/25 07/05/25 08:56 Currently or been in a relationship where the following occur: No concerns reported Const General: No confusion Orientation/consciousness: patient oriented x3 and No confusion HENMT Head: Yes normal to inspection, Yes normocephalic and Yes atraumatic Ears: external ears normal Eyes General: appearance normal, both eyes and all related structures Eyelids: Yes eyelids normal Conjunctivae: conjunctivae normal Neck Neck: Yes normal visual inspection and Yes supple Resp Effort & Inspection: normal respiratory effort Auscultation: clear to auscultation bilaterally Cardio Jugular venous distension: no JVD Rate: regular rate Rhythm: regular rhythm Heart sounds: S1 normal heart sound present and S2 normal heart sound present GI Inspection: Yes normal to inspection Palpation (GI): Soft to palpation and nontender Auscultation: normal bowel sounds Skin General skin exam: no rashes or lesions noted Neuro General: patient oriented x3, no focal motor deficits and No confusion Extrem General: Yes full ROM Psych Appearance: grossly normal Coding Level of Care Code Est Pt Prev Care 18-39y(10416) Diagnoses Adult general medical exam Z00.00 Elevated hemoglobin D58.2 Additional Codes PHQ-9 - 11247 - PHQ-9 Billing: Yes ([id number]) MALLORIE-7 Assessment Billing - MALLORIE-7 Assessment Tool: MALLORIE-7 Assessment 57297 ([id number]) Time Spent (min) 30 Assessment & Plan Assessment & Plan (1) Adult general medical exam: Code(s): Z00.00 - Encounter for general adult medical examination without abnormal findings Category: Medical (2) Elevated hemoglobin: Code(s): D58.2 - Other hemoglobinopathies Category: Medical Plan The patient will continue with regular blood donations to manage elevated hemoglobin levels as advised by the curriculum advisory teacher. She is advised to consider receiving the Tdap vaccination, which can be administered at a pharmacy or during a nurse visit. Routine blood work will be conducted to monitor vitamin D levels, cholesterol, glucose, renal, and hepatic function. Patient was informed and verbally consented to the use of an ambient scribe for clinic note documentation during this visit. Orders: Orders Vitamin D 25-OH Total Today E55.9 - Vitamin D deficiency, unspecified Complete Blood Count Auto Diff Today D58.2 - Other hemoglobinopathies Lipid Panel Today Z00.00 - Encounter for general adult medical examination without abnormal findings IRON PROFILE Today D58.2 - Other hemoglobinopathies Comprehensive [place]. Panel Fast Today Z00.00 - Encounter for general adult medical examination without abnormal findings
[2025-07-05 08:52] VITALS: BP 130/70; PULSE 95; TEMP 36.2; O2SAT 98; BMI 34.2
== END 2025-07-05 09:14 | disposition home or self-care (01) ==
LOC: HO.HMCH 08:46
PROVIDERS: PCP Internal Medicine; Visit Provider Internal Medicine
DX: Z00.00 Encounter for general adult medical examination without abnormal findings (principal); D58.2 Other hemoglobinopathies

== ENCOUNTER → 2025-07-05 08:45 | Outpatient (BNVA) | payer OTHER, SELFPAY | PROVIDERS: PCP Internal Medicine; Visit Provider Internal Medicine | DX: Z00.00 Encounter for general adult medical examination without abnormal findings (principal); F41.9 Anxiety disorder, unspecified; D58.2 Other hemoglobinopathies | CPT/HCPCS: 96127; 99395 ==

== ENCOUNTER 2025-07-06 09:24 | Outpatient (REF) | payer OTHER, SELFPAY ==
[2025-07-06 09:54] LABS: MANUAL DIFF FLAG NO
[2025-07-06 10:24] LABS: Hematocrit 42.8 % (37.0-47.0); Hemoglobin 13.1 g/dl (12.0-16.0); Imm Gran Abs Auto 0.03 X10*3/uL (0.00-0.03); Imm Gran Pct Auto 0.3 % (0.0-0.4); Lymphocytes Absolute Auto 3.0 X10*3/uL (1.2-4.9); Mean Corpuscular HGB Conc 30.6 g/dl (31.0-35.0); Mean Corpuscular Hemoglobin 22.4 pg (27.0-33.0); Mean Corpuscular Volume 73.0 fL (80.0-98.0); NRBC Abs Auto 0.000 X10*3/uL (0.0-0.012); NRBC Pct Auto 0.0 /100WBC (0.0-0.2); Platelet Count 365 X10*3/uL (160-400); Red Blood Count 5.86 X10*6/uL (4.20-5.50); White Blood Count 9.0 X10*3/uL (4.8-10.8)
[2025-07-06 11:07] LABS: Alanine Aminotransferase 17 U/L (0-31); Albumin Level 4.7 g/dL (3.5-5.0); Alkaline Phosphatase 59 U/L (39-117); Anion Gap 13 (12-20); Aspartate Amino Transferase 26 U/L (5-31); Blood Urea Nitrogen 12 mg/dL (9-16); Calcium 9.3 mg/dL (8.4-10.2); Carbon Dioxide 21 mmol/L (22-29); Chloride 110 mmol/L (96-108); Cholesterol 181 mg/dL (<200); Estimated Glomerular Filt Rate > 60; HDL Cholesterol 52 mg/dL (>40); Iron 22 mcg/dL (30-160); Percent Iron Saturation 6 % (15-50); Potassium 4.3 mmol/L (3.3-5.1); Sodium 140 mmol/L (135-145); Total Iron Binding Capacity 373 mcg/dL (228-428); Total Protein 7.6 g/dL (6.5-8.0); Triglycerides 65 mg/dL (<150); Unsaturated Iron Binding 351 ug/dL
== END 2025-07-06 09:25 | disposition home or self-care (01) ==
LOC: HO.LAB 09:24
PROVIDERS: PCP Internal Medicine; Visit Provider Internal Medicine
DX: Z00.00 Encounter for general adult medical examination without abnormal findings (principal); D58.2 Other hemoglobinopathies; E55.9 Vitamin D deficiency, unspecified
CPT/HCPCS: 36415; 80053; 80061; 82306; 83540; 85025

== ENCOUNTER 2025-07-26 08:56 | Outpatient (AMB) | payer OTHER, SELFPAY ==
[2025-07-26 09:25] VITALS: BMI 34.2
--- NOTE | 2025-07-26 09:25 | AM.OFFVISNUR ---
Vital Signs 07/26/25 09:25 Height 5 ft 1 in Weight 181 lb BMI 34.2 Intake Visit Reasons: DEPO Allergies No Known Allergies Allergy (Verified 07/06/25 10:29) Nursing Note Taisha is here today for her scheduled depo-provera inj. She denies any problems or concerns. INJ given in lt deltoid. Follow up in Nov for next Annual and 12 weeks for next inj. Office Procedures Depo Questionnaire If YES to any of the following questions, please consult a provider. Date of last injection: 04/27/25 Date of last gynecology exam: 12/07/24 Menstrual pattern since last injection has been: Not Applicable Irregular bleeding?: No Breast lumps or other breast changes?: No Changes in weight or appetite?: No Depression or changes in mood?: No Abnormal hair growth or loss?: No Skin problems (rash, acne, discoloration)?: No Pain at the injection site?: No Headaches?: No Nervousness?: No Abdominal pain or cramping?: No Dizziness or nausea?: No Fatigue or weakness?: No Decrease in sexual drive?: Not Applicable Chest pain or shortness of breath?: No Swelling in arms or legs?: No Form completed by?: Selena Barnhart LPN Office Meds Depo-Provera 150 mg/mL intramuscular syringe Performing Provider: Yary Felder CNM [place] [facility] [place] [facility] Administered by: Lydia Barnhart LPN on 07/26/25 09:25 Dose Route Admin Location Dispensed Lot Number Expiration Date [facility] Power Regulator 150 mg IM left deltoid 1 mL [id number] 08/14/26 66308-709-61 [employer] Total Dispensed Waste 1 mL 0 % Assessment & Plan Assessment & Plan Orders: Orders AMB Medroxyprogesterone Injection Patient Supplied Today Z30.42 - Encounter for surveillance of injectable contraceptive Coding Level of Care Code Established Pt Est Pt Level 1 (93464) Patient Type Established History Problem Focused Exam Problem Focused Medical Decision Making Straight Forward Time Spent (min) 20
== END 2025-07-26 09:10 | disposition home or self-care (01) ==
LOC: HO.HWS 08:56
PROVIDERS: PCP Internal Medicine; Visit Provider Advanced Practice Midwife
DX: Z30.42 Encounter for surveillance of injectable contraceptive (principal)

== ENCOUNTER → 2025-07-26 08:56 | Outpatient (BNVA) | payer OTHER, SELFPAY | PROVIDERS: PCP Internal Medicine; Visit Provider Advanced Practice Midwife | DX: Z30.42 Encounter for surveillance of injectable contraceptive (principal) | CPT/HCPCS: 96372; 99211; J1050 ==

== ENCOUNTER 2025-10-26 08:50 | Outpatient (AMB) | payer OTHER, SELFPAY ==
--- NOTE | 2025-10-26 09:05 | AM.OFFVISNUR ---
Vital Signs 10/26/25 09:09 Height 5 ft 1 in Weight 170 lb BMI 32.1 Intake Visit Reasons: depo Allergies No Known Allergies Allergy (Verified 07/06/25 10:29) Nursing Note Patient here for scheduled depo provera injection with medication. Patient had no complaints. Been on injection for about 4 years. Patient to schedule next injection in 12 weeks. ( 01/10/26-12/27/25 ) Office Procedures Depo Questionnaire If YES to any of the following questions, please consult a provider. Date of last injection: 07/26/25 Date of last gynecology exam: 12/07/24 Menstrual pattern since last injection has been: Not Applicable Irregular bleeding?: No Breast lumps or other breast changes?: No Changes in weight or appetite?: No Depression or changes in mood?: No Abnormal hair growth or loss?: No Skin problems (rash, acne, discoloration)?: No Pain at the injection site?: No Headaches?: No Nervousness?: No Abdominal pain or cramping?: No Dizziness or nausea?: No Fatigue or weakness?: No Decrease in sexual drive?: No Chest pain or shortness of breath?: No Swelling in arms or legs?: No Any other problems or concerns?: no concerns Form completed by?: RpeaseLPN Office Meds Depo-Provera 150 mg/mL intramuscular syringe Performing Provider: Yary Felder CNM [place] [facility] [place] Administered by: Danielle Stiles LPN on 10/26/25 09:05 Dose Route Admin Location Dispensed Lot Number Expiration Date [facility] Cash Checker 150 mg IM right deltoid 1 mL [id number] 08/14/26 01266-221-00 [employer]OM[employer] Total Dispensed Waste 1 mL 0 % Assessment & Plan Assessment & Plan Orders: Orders AMB Medroxyprogesterone Injection Patient Supplied Today Z30.42 - Encounter for surveillance of injectable contraceptive Coding Level of Care Code Established Pt Est Pt Level 1 (68109) Patient Type Established History Problem Focused Exam Problem Focused Medical Decision Making Straight Forward Time Spent (min) 20
[2025-10-26 09:09] VITALS: BMI 32.1
== END 2025-10-26 09:17 | disposition home or self-care (01) ==
LOC: HO.HWS 08:51
PROVIDERS: PCP Internal Medicine; Visit Provider Advanced Practice Midwife
DX: Z30.42 Encounter for surveillance of injectable contraceptive (principal)

== ENCOUNTER → 2025-10-26 08:50 | Outpatient (BNVA) | payer OTHER, SELFPAY | PROVIDERS: PCP Internal Medicine; Visit Provider Advanced Practice Midwife | DX: Z30.42 Encounter for surveillance of injectable contraceptive (principal) | CPT/HCPCS: 96372; 99211; J1050 ==